=== PATIENT | female | born 1995 | race Caucasian/White ===

== ENCOUNTER 2018-04-14 10:43 | Emergency (ER) | payer OTHER ==
[2018-04-14 10:57] VITALS: RESP 18
[2018-04-14] MEDS ORDERED: Iohexol 240 (50 ml) PO STA (11:25)
[2018-04-14] MEDS ORDERED: Sodium Chloride 0.9% 1,000 ML IV STA (11:25)
--- NOTE | 2018-04-14 11:37 | C.PDOC ---
History Of Present Illness 23 year old female presents to ED for evaluation of LLQ abdominal pain associated with diarrhea for the last 2 days. Pt reports having similar symptoms a year ago which resolved spontaneously, noted she was not evaluated at that time. Notes symptoms are worse this time which prompted her to visit ED. Notes pain occasionally radiates to left flak area. Otherwise, denies dysuria, hematuria, frequency, nausea, vomiting, blood in stool, fever, or chills. Time Seen by Provider: 04/14/18 10:59 Chief Complaint (Nursing): Abdominal Pain History Per: Patient History/Exam Limitations: no limitations Onset/Duration Of Symptoms: Days (2) Current Symptoms Are (Timing): Worse Location Of Pain/Discomfort: LLQ Radiation Of Pain To:: Flank Quality Of Discomfort: "Pain" Associated Symptoms: Diarrhea. denies: Loss Of Appetite, Chest Pain, Constipation, Urinary Symptoms Exacerbating Factors: None Alleviating Factors: None Recent travel outside of the [place]: No Additional History Per: Patient Past Medical History Reviewed: Historical Data, Nursing Documentation, Vital Signs Vital Signs: Last Vital Signs Temp 98 F 04/14/18 17:16 Pulse 69 04/14/18 17:16 Resp 18 04/14/18 17:16 BP 126/89 04/14/18 17:16 Pulse Ox 98 04/14/18 17:20 Family History: States: Unknown Family Hx - Social History Hx Alcohol Use: No Hx Substance Use: No Review Of Systems Except As Marked, All Systems Reviewed And Found Negative. Constitutional: Negative for: Fever, Chills Gastrointestinal: Positive for: Abdominal Pain, Diarrhea. Negative for: Nausea , Vomiting, Constipation, Melena, Hematochezia Genitourinary: Negative for: Dysuria, Frequency, Hematuria Musculoskeletal: Positive for: Back Pain Neurological: Negative for: Weakness, Numbness, Headache Physical Exam - Physical Exam Appears: Non-toxic, No Acute Distress Skin: Normal Color, Warm, Dry Head: Atraumatic, Normacephalic Eye(s): bilateral: Normal Inspection Oral Mucosa: Moist Neck: Normal ROM, Supple Chest: Symmetrical, No Tenderness Cardiovascular: Rhythm Regular Respiratory: Normal Breath Sounds, No Rales, No Rhonchi, No Wheezing Gastrointestinal/Abdominal: Bowel Sounds, Soft, Tenderness (LLQ), No Distention , No Guarding, No Rebound Back: No CVA Tenderness Extremity: Normal ROM Neurological/Psych: Oriented x3, Normal Speech ED Course And Treatment - Laboratory Results Result Diagrams: 04/14/18 11:37 04/14/18 11:37 O2 Sat by Pulse Oximetry: 98 (RA) Pulse Ox Interpretation: Normal - CT Scan/US Abd & Pelvis CT Other Rad Studies (CT/US): Read By Radiologist, Radiology Report Reviewed CT/US Interpretation: FINDINGS: LOWER THORAX: No visible consolidation, pleural effusion, or pneumothorax. LIVER: Unremarkable. GALLBLADDER AND BILE DUCTS: Unremarkable. PANCREAS: Unremarkable. SPLEEN: Unremarkable. ADRENALS: Unremarkable. KIDNEYS AND URETERS: The kidneys enhance symmetrically. No hydronephrosis or obstructing renal calculus. BLADDER: The urinary bladder appears unremarkable. REPRODUCTIVE: Uterus is present. APPENDIX: The appendix appears within normal limits of caliber. No secondary signs of acute appendicitis. BOWEL: The stomach is nondistended. The bowel loops appear within normal limits of caliber without evidence of intestinal obstruction. PERITONEUM: Small pelvic free fluid, likely physiologic. No definite free air. LYMPH NODES: No bulky lymphadenopathy identified. VASCULATURE: No aortic aneurysm. BONES: No acute osseous abnormality is detected. OTHER FINDINGS: None. IMPRESSION: No acute findings identified. See above. Medical Decision Making Medical Decision Making: Plan: Blood work Urinalysis Abd & Pelvis CT Toradol Zofran IV fluids Progress note: On re-eval, pt is resting comfortably, abdomen remains soft. Pt reports improvement of abdominal pain. Patient is being discharged home with Rx and is instructed to follow up in clinic and with inspector electromechanical within next 2-3 days. Disposition - Disposition Referrals: [facility] at [facility] [Outside] Disposition: HOSPITALIZED Disposition Time: 16:42 Condition: STABLE Additional Instructions: Follow up in Clinic and with Leather Carver within next 2-3 days. Return to ED if feel worse. Prescriptions: Dicyclomine [Bentyl] 20 mg PO TID #30 tab Instructions: Viral Gastroenteritis, Adult (DC) Forms: [facility] (Tajik) - Clinical Impression Clinical Impression: Abdominal pain, Diarrhea - PA / CUTTER GRINDER / Resident Statement MD/DO has reviewed & agrees with the documentation as recorded. - Scribe Statement The provider has reviewed the documentation as recorded by the Abbieibe Mamadou Parsons All medical record entries made by the Scribe were at my direction and personally dictated by me. I have reviewed the chart and agree that the record accurately reflects my personal performance of the history, physical exam, medical decision making, and the department course for this patient. I have also personally directed, reviewed, and agree with the discharge instructions and disposition.
[2018-04-14] MEDS ORDERED: Sodium Chloride 0.9% 1,000 ML ONE (11:43)
[2018-04-14] MEDS ORDERED: Iohexol 240 (50 ml) ONE (11:43)
[2018-04-14 11:46] LABS: BASO % 0.8 % (0.0-2.0); EOS # 0.1 K/uL (0.0-0.7); EOS % 1.8 % (0.0-4.0); HEMOGLOBIN 13.8 g/dL (11.0-16.0); LYMPH # 1.3 K/uL (1.0-4.3); LYMPH % 23.7 % (20.0-40.0); MEAN CELL VOLUME 87.4 fL (81.0-99.0); MEAN CORPUSCULAR HEMOGLOBIN 30.3 pg (27.0-31.0); MEAN CORPUSCULAR HGB CONC 34.7 g/dL (33.0-37.0); MEAN PLATELET VOLUME 8.5 fL (7.2-11.7); MONO # 0.7 K/uL (0.0-0.8); NEUT # 3.5 K/uL (1.8-7.0); NEUT % 61.7 % (50.0-75.0); RBC 4.57 Mil/uL (3.80-5.20); RED CELL DISTRIBUTION WIDTH 13.1 % (11.5-14.5); WHITE BLOOD COUNT 5.6 K/uL (4.8-10.8)
[2018-04-14 11:50] LABS: HCG,QUALITATIVE URINE NEGATIVE (NEGATIVE)
[2018-04-14 11:55] LABS: SQUAMOUS EPITHIAL 19 /hpf (0-5); URINE BACTERIA RARE (<OCC); URINE BILIRUBIN NEGATIVE (NEGATIVE); URINE BLOOD 2+ (NEGATIVE); URINE CLARITY Hazy (Clear); URINE COLOR Yellow (YELLOW); URINE GLUCOSE (UA) NORMAL (Normal); URINE LEUKOCYTE ESTERASE 2+ Leu/uL (Negative); URINE PROTEIN NEGATIVE (NEGATIVE); URINE UROBILINOGEN NORMAL mg/dL (0.2-1.0)
[2018-04-14 12:09] LABS: ALB/GLOB RATIO 1.3 (1.0-2.1); ALBUMIN 4.7 g/dL (3.5-5.0); ALT/SGPT 25 U/L (9-52); AST/SGOT 23 U/L (14-36); BLOOD UREA NITROGEN 6 mg/dL (7-17); CALCIUM 9.7 mg/dl (8.6-10.4); GFR NON-AFRICAN AMERICAN > 60; LIPASE 44 U/L (23-300)
[2018-04-14] MEDS ORDERED: Iodixanol 320 mg/ml 150 ml Bottle IV ONE (14:20)
--- NOTE | 2018-04-14 14:57 | CT ---
PROCEDURE: CT Abdomen and Pelvis with oral and IV contrast. HISTORY: LLQ abd pain COMPARISON: None available. TECHNIQUE: Contiguous axial images of the abdomen and pelvis. Oral and IV contrast was administered. Coronal and Sagittal reformats generated and reviewed. Contrast dose: 100 mL Visipaque IV Radiation dose: Total exam DLP = 892.38 mGy-cm. This CT exam was performed using one or more of the following dose reduction techniques: Automated exposure control, adjustment of the mA and/or kV according to patient size, and/or use of iterative reconstruction technique. FINDINGS: LOWER THORAX: No visible consolidation, pleural effusion, or pneumothorax. LIVER: Unremarkable. GALLBLADDER AND BILE DUCTS: Unremarkable. PANCREAS: Unremarkable. SPLEEN: Unremarkable. ADRENALS: Unremarkable. KIDNEYS AND URETERS: The kidneys enhance symmetrically. No hydronephrosis or obstructing renal calculus. BLADDER: The urinary bladder appears unremarkable. REPRODUCTIVE: Uterus is present. APPENDIX: The appendix appears within normal limits of caliber. No secondary signs of acute appendicitis. BOWEL: The stomach is nondistended. The bowel loops appear within normal limits of caliber without evidence of intestinal obstruction. PERITONEUM: Small pelvic free fluid, likely physiologic. No definite free air. LYMPH NODES: No bulky lymphadenopathy identified. VASCULATURE: No aortic aneurysm. BONES: No acute osseous abnormality is detected. OTHER FINDINGS: None. IMPRESSION: No acute findings identified. See above.
[2018-04-14 16:44] VITALS: O2SAT 98
[2018-04-14 17:17] VITALS: BP 126/89; PULSE 69; TEMP 98
== END 2018-04-14 17:17 | disposition home or self-care (01) ==
LOC: C.ER 10:43
DX: R10.32 Left lower quadrant pain (principal); R19.7 Diarrhea, unspecified
CPT/HCPCS: 74177; 80053; 81001; 83690; 84703; 85025; 96374; 96375; 99285; J1885; J2405; J7030; Q9966; Q9967

== ENCOUNTER 2018-06-23 17:03 | Emergency (ER) | payer SELFPAY ==
[2018-06-23 17:14] VITALS: BMI 33.6
[2018-06-23 17:16] VITALS: BP 111/74; PULSE 84; RESP 20; TEMP 98.5; O2SAT 100
--- NOTE | 2018-06-23 17:51 | C.PDOC ---
History Of Present Illness 23 year old female presents to the emergency department with complaints of an itchy rash to the face, forehead, and upper neck since yesterday. Patient denies eating any new foods or using any new topical substances. Patient states that she tried taking PO Benadryl yesterday with no relief of symptoms. She denies chest pain, palpitations, or difficulty breathing. Time Seen by Provider: 06/23/18 17:35 Chief Complaint (Nursing): Abnormal Skin Integrity History Per: Patient History/Exam Limitations: no limitations Onset/Duration Of Symptoms: Days (1) Current Symptoms Are (Timing): Still Present Location Of Injury: Anterior: Face, Head (forehead), Neck Quality Of Symptoms: Itching Past Medical History Reviewed: Historical Data, Nursing Documentation, Vital Signs Vital Signs: Last Vital Signs Temp 98.5 F 06/23/18 17:14 Pulse 84 06/23/18 17:14 Resp 20 06/23/18 17:14 BP 111/74 06/23/18 17:14 Pulse Ox 100 06/23/18 17:14 - Medical History PMH: No Chronic Diseases Surgical History: No Surg Hx Family History: States: No Known Family Hx - Social History Hx Alcohol Use: No Hx Substance Use: No - Immunization History Hx Tetanus Toxoid Vaccination: No Hx Influenza Vaccination: No Hx Pneumococcal Vaccination: No Review Of Systems ENT: Negative for: Mouth Swelling, Throat Pain, Throat Swelling Cardiovascular: Negative for: Chest Pain, Palpitations Respiratory: Negative for: Shortness of Breath Skin: Positive for: Rash Physical Exam - Physical Exam Appears: Well, Non-toxic, No Acute Distress Skin: Warm, Dry, Rash (sandpaper-like rash to the cheeks bilaterally and upper forehead) Head: Atraumatic, Normacephalic Eye(s): bilateral: Normal Inspection Oral Mucosa: Moist Tongue: Normal Appearing, No Swelling Lips: Normal Appearing, No Swelling Throat: No Erythema, No Exudate Neck: Normal, Supple Respiratory: Normal Breath Sounds, No Rales, No Rhonchi, No Wheezing Neurological/Psych: Oriented x3, Normal Speech, Normal Cognition ED Course And Treatment O2 Sat by Pulse Oximetry: 100 (RA) Pulse Ox Interpretation: Normal Medical Decision Making Medical Decision Making: pt with itchy rash to face. no sign of airway compromise, d/c home with benadryl and prednosine. Disposition Counseled Patient/Family Regarding: Diagnosis, Need For Followup, Rx Given - Disposition Referrals: [facility] at [facility] [Outside] Disposition: HOME/ ROUTINE Disposition Time: 18:39 Condition: GOOD Additional Instructions: Avoid any new substances on skin. Use only hypo allergenic soaps or moisturizers. Take prednisone as prescribed and continue taking bendryl 25 mg by mouth every 6 hours. If rash worsens, spreads to mouth, lips or tongue, causes any difficulty swallowing or breathing. then return to the ER, otherwise follow up in medical clinic next week. Prescriptions: predniSONE [predniSONE Tab] 2 tab PO DAILY #8 tab Instructions: Skin Rash (DC) Forms: [employer] Connect (Croatian), General Discharge Instructions - Clinical Impression Clinical Impression: Rash - PA / GLASS OR MIRROR INSPECTOR / Resident Statement MD/DO has reviewed & agrees with the documentation as recorded. - Scribe Statement The provider has reviewed the documentation as recorded by the Scribe (Nii Urrutia) All medical record entries made by the Scribe were at my direction and personally dictated by me. I have reviewed the chart and agree that the record accurately reflects my personal performance of the history, physical exam, medical decision making, and the department course for this patient. I have also personally directed, reviewed, and agree with the discharge instructions and disposition.
== END 2018-06-23 18:57 | disposition home or self-care (01) ==
LOC: C.ER 17:03
DX: R21 Rash and other nonspecific skin eruption (principal)

== ENCOUNTER 2018-11-25 14:38 | Observation (INO) | payer SELFPAY ==
[2018-11-25 14:38] VITALS: BMI 33.6
[2018-11-25 16:02] LABS: BASO # 0.1 K/uL (0.0-0.2); EOS # 0.3 K/uL (0.0-0.7); HEMOGLOBIN 14.2 g/dL (11.0-16.0); LYMPH # 3.1 K/uL (1.0-4.3); MEAN CELL VOLUME 89.6 fL (81.0-99.0); MEAN CORPUSCULAR HEMOGLOBIN 30.7 pg (27.0-31.0); MEAN CORPUSCULAR HGB CONC 34.2 g/dL (33.0-37.0); MEAN PLATELET VOLUME 8.4 fL (7.2-11.7); MONO # 0.5 K/uL (0.0-0.8); MONO % 5.3 % (0.0-10.0); NEUT # 5.5 K/uL (1.8-7.0); NEUT % 57.7 % (50.0-75.0); RBC 4.64 Mil/uL (3.80-5.20); RED CELL DISTRIBUTION WIDTH 14.3 % (11.5-14.5); WHITE BLOOD COUNT 9.5 K/uL (4.8-10.8)
[2018-11-25 16:14] LABS: ALB/GLOB RATIO 1.1 (1.0-2.1); ALBUMIN 4.9 g/dL (3.5-5.0); ALT/SGPT 36 U/L (9-52); AST/SGOT 57 U/L (14-36); BLOOD UREA NITROGEN 17 mg/dL (7-17); CALCIUM 9.8 mg/dl (8.6-10.4); GFR NON-AFRICAN AMERICAN > 60
[2018-11-25 16:46] LABS: T3 0.725 nmol/L (1.49-2.60)
--- NOTE | 2018-11-25 17:08 | CP.PCM.HP ---
<Elli Camargo - Last Filed: 11/25/18 18:32> History of Present Illness - History of Present Illness History of Present Illness: H&P: 23 year old female with past medical history of hypothyroidism presents for fatigue and diffuse body aches ongoing for past 2 weeks. She also complains of 20 lb weight gain over last month. She states that in April, she was prescribed synthroid in [facility] for 3 months. She completed the 3 month prescription and never followed up. She stopped the Synthroid about 1.5 months ago. In ED, pt noted to have TSH of 86.30 and T4 of 0.1. Pt complaining of prof use hair loss, fatigue, weakness, weight gain, shortness of breath. Denies having any changes in bowel movements, chest pain, depression, anxiety, vision changes, headaches. PMHx: hypothyroid Sx: none Social:denies. Moved from [facility] 6 months ago PMD: none FHx: hypothyroid, HTN Meds: currently none Present on Admission - Present on Admission Any Indicators Present on Admission: No Review of Systems - Constitutional Constitutional: Lethargy, Weight Gain. absent: Chills, Fever, Headache, Weight Loss - EENT Eyes: absent: Blurred Vision, Change in Vision, Exophthalmos Nose/Mouth/Throat: absent: Nasal Congestion, Sore Throat - Cardiovascular Cardiovascular: absent: Chest Pain, Dyspnea, Dyspnea on Exertion, Edema, Lightheadedness, Palpitations, Pedal Edema - Respiratory Respiratory: absent: Cough, Dyspnea, Wheezing, Chest Congestion - Gastrointestinal Gastrointestinal: absent: Abdominal Pain, Constipation, Diarrhea, Heartburn, Nausea, Vomiting - Genitourinary Genitourinary: absent: Change in Urinary Stream, Difficulty Urinating, Urinary Incontinence, Urinary Frequency - Menstruation Menstruation: Normal Menses. absent: Amenorrhea - Musculoskeletal Musculoskeletal: absent: Back Pain, Numbness, Stiffness, Tingling - Integumentary Integumentary: absent: Lesions, Rash - Neurological Neurological: absent: Dizziness, Numbness, Tingling, Weakness - Psychiatric Psychiatric: absent: Anxiety, Confusion, Depression - Endocrine Endocrine: Fatigue Past Patient History - Past Social History Smoking Status: Never Smoked Chewing Tobacco Use: No Cigar Use: No Alcohol: None Drugs: Denies - ENDOCRINE/METABOLIC Hx Endocrine Disorders: Yes Hx Hypothyroidism: Yes - PSYCHIATRIC Hx Substance Use: No - SURGICAL HISTORY Hx Surgeries: No - ANESTHESIA Hx Anesthesia: No Meds Allergies/Adverse Reactions: Allergies Allergy/AdvReac Type Severity Reaction Status Date / Time No Known Allergies Allergy Verified 11/25/18 14:54 Physical Exam - Constitutional Appears: Non-toxic, No Acute Distress - Head Exam Head Exam: ATRAUMATIC, NORMOCEPHALIC - Eye Exam Eye Exam: absent: Periorbital swelling, Periorbital tenderness - ENT Exam ENT Exam: Mucous Membranes Dry - Respiratory Exam Respiratory Exam: Clear to Auscultation Bilateral. absent: Accessory Muscle Use, Rales, Rhonchi, Wheezes, Respiratory Distress - Cardiovascular Exam Cardiovascular Exam: REGULAR RHYTHM, +S1, +S2. absent: Diastolic murmur, Systolic Murmur - GI/Abdominal Exam GI & Abdominal Exam: Normal Bowel Sounds, Soft. absent: Distended, Firm, Guarding, Rigid, Tenderness - Extremities Exam Extremities exam: Negative for: pedal edema, tenderness - Neurological Exam Neurological exam: Alert, Oriented x3 - Psychiatric Exam Psychiatric exam: Normal Affect, Normal Mood - Skin Skin Exam: Dry, Intact, Normal Color, Warm Results - Vital Signs Recent Vital Signs: Last Vital Signs Temp 97.6 F 11/25/18 14:50 Pulse 62 11/25/18 14:50 Resp 18 11/25/18 14:50 BP 108/75 11/25/18 14:50 Pulse Ox 99 11/25/18 14:50 - Labs Result Diagrams: 11/25/18 15:57 11/25/18 15:57 Labs: Laboratory Results - last 24 hr 11/25/18 11/25/18 11/25/18 15:57 15:57 15:57 WBC 9.5 D RBC 4.64 Hgb 14.2 Hct 41.5 MCV 89.6 D MCH 30.7 MCHC 34.2 RDW 14.3 Plt Count 231 MPV 8.4 Neut % (Auto) 57.7 Lymph % (Auto) 33.0 [place] % (Auto) 5.3 Eos % (Auto) 3.0 Baso % (Auto) 1.0 Neut # (Auto) 5.5 Lymph # (Auto) 3.1 [place] # (Auto) 0.5 Eos # (Auto) 0.3 Baso # (Auto) 0.1 Sodium 136 Potassium 3.8 Chloride 101 Carbon Dioxide 25 Anion Gap 14 BUN 17 Creatinine 0.7 Est GFR ( Amer) > 60 Est GFR (Non-Af Amer) > 60 Random Glucose 85 Calcium 9.8 Total Bilirubin 0.6 AST 57 H D ALT 36 Alkaline Phosphatase 90 Total Protein 9.2 H Albumin 4.9 Globulin 4.3 H Albumin/Globulin Ratio 1.1 Free T4 0.10 L Total T3 0.725 L TSH 3rd Generation 86.30 H Assessment & Plan - Assessment and Plan (Free Text) Assessment: 23 y/o female with pmhx of hypothyroid is admitted for symptomatic hypothyroidism. TSH on admission is 86.30, T4 is 0.10, T3 is 0.725. EKG on admission showed bradycardia at 56 bpm. Hypothyroidism - Will check thyroid peroxidase and antithyroglobulin - Pt started on synthroid IV 100 mg - Endo, Dr. Juarez consulted - Will check hgb A1c and lipid panel Prophylaxis - Lovenox qd - GI ppx not indicated - HHD Case discussed with attending, Dr. Solano - Date & Time Date: 11/25/18 Time: 17:45 <Jeannette Solano - Last Filed: 11/26/18 10:43> Results - Vital Signs Recent Vital Signs: Last Vital Signs Temp 98.2 F 11/25/18 23:00 Pulse 61 11/25/18 23:00 Resp 20 11/25/18 23:00 BP 113/69 11/25/18 23:00 Pulse Ox 99 11/26/18 07:15 - Labs Result Diagrams: 11/26/18 08:40 11/26/18 08:40 Labs: Laboratory Results - last 24 hr 11/25/18 11/25/18 11/25/18 15:57 15:57 15:57 WBC 9.5 D RBC 4.64 Hgb 14.2 Hct 41.5 MCV 89.6 D MCH 30.7 MCHC 34.2 RDW 14.3 Plt Count 231 MPV 8.4 Neut % (Auto) 57.7 Lymph % (Auto) 33.0 [place] % (Auto) 5.3 Eos % (Auto) 3.0 Baso % (Auto) 1.0 Neut # (Auto) 5.5 Lymph # (Auto) 3.1 [place] # (Auto) 0.5 Eos # (Auto) 0.3 Baso # (Auto) 0.1 Sodium 136 Potassium 3.8 Chloride 101 Carbon Dioxide 25 Anion Gap 14 BUN 17 Creatinine 0.7 Est GFR ( Amer) > 60 Est GFR (Non-Af Amer) > 60 Random Glucose 85 Hemoglobin A1c Calcium 9.8 Total Bilirubin 0.6 AST 57 H D ALT 36 Alkaline Phosphatase 90 Total Protein 9.2 H Albumin 4.9 Globulin 4.3 H Albumin/Globulin Ratio 1.1 Triglycerides Cholesterol LDL Cholesterol Direct HDL Cholesterol Free T4 Thyroxine (T4) Total T3 0.725 L TSH 3rd Generation 86.30 H Urine Color Yellow Urine Clarity Hazy Urine pH 5.0 Ur Specific [place] 1.016 Urine Protein Negative Urine Glucose (UA) Normal Urine Ketones Negative Urine Blood 1+ H Urine Nitrate Negative Urine Bilirubin Negative Urine Urobilinogen Normal Ur Leukocyte Esterase 3+ H Urine WBC (Auto) 31 H Urine RBC (Auto) 1 Ur Squamous Epith Cells 6 H Urine Bacteria Few H 11/25/18 11/26/18 11/26/18 15:57 08:40 08:40 WBC 7.8 RBC 4.29 Hgb 13.2 Hct 38.5 MCV 89.9 MCH 30.9 MCHC 34.3 RDW 14.3 Plt Count 234 MPV 8.7 Neut % (Auto) 58.3 Lymph % (Auto) 30.4 [place] % (Auto) 7.2 Eos % (Auto) 2.9 Baso % (Auto) 1.2 Neut # (Auto) 4.6 Lymph # (Auto) 2.4 [place] # (Auto) 0.6 Eos # (Auto) 0.2 Baso # (Auto) 0.1 Sodium 137 Potassium 4.1 Chloride 102 Carbon Dioxide 23 Anion Gap 17 BUN 13 Creatinine 0.8 Est GFR ( Amer) > 60 Est GFR (Non-Af Amer) > 60 Random Glucose 91 Hemoglobin A1c Calcium 9.3 Total Bilirubin 0.3 AST 47 H ALT 33 Alkaline Phosphatase 86 Total Protein 7.8 Albumin 4.3 Globulin 3.5 Albumin/Globulin Ratio 1.2 Triglycerides 320 H Cholesterol 307 H LDL Cholesterol Direct 214 H HDL Cholesterol 37 Free T4 0.10 L Thyroxine (T4) 2.19 L Total T3 TSH 3rd Generation 84.20 H Urine Color Urine Clarity Urine pH Ur Specific [place] Urine Protein Urine Glucose (UA) Urine Ketones Urine Blood Urine Nitrate Urine Bilirubin Urine Urobilinogen Ur Leukocyte Esterase Urine WBC (Auto) Urine RBC (Auto) Ur Squamous Epith Cells Urine Bacteria 11/26/18 11/26/18 08:40 08:40 WBC RBC Hgb Hct MCV MCH MCHC RDW Plt Count MPV Neut % (Auto) Lymph % (Auto) [place] % (Auto) Eos % (Auto) Baso % (Auto) Neut # (Auto) Lymph # (Auto) [place] # (Auto) Eos # (Auto) Baso # (Auto) Sodium Potassium Chloride Carbon Dioxide Anion Gap BUN Creatinine Est GFR ( Amer) Est GFR (Non-Af Amer) Random Glucose Hemoglobin A1c 5.3 Calcium Total Bilirubin AST ALT Alkaline Phosphatase Total Protein Albumin Globulin Albumin/Globulin Ratio Triglycerides Cholesterol LDL Cholesterol Direct HDL Cholesterol Free T4 0.23 L Thyroxine (T4) Total T3 TSH 3rd Generation Urine Color Urine Clarity Urine pH Ur Specific [place] Urine Protein Urine Glucose (UA) Urine Ketones Urine Blood Urine Nitrate Urine Bilirubin Urine Urobilinogen Ur Leukocyte Esterase Urine WBC (Auto) Urine RBC (Auto) Ur Squamous Epith Cells Urine Bacteria Attending/Attestation - Attestation I have personally seen and examined this patient.: Yes I have fully participated in the care of the patient.: Yes I have reviewed all pertinent clinical information: Yes Notes (Text): Seen and examined patient has severe symptomatic hypothyroidism start on IV Levothyroxin,follow up with business proposal rep recommendation spoke to pt. Told to not to stop her meds,follow or medical clinic to adjust the dose and get refills
[2018-11-25 17:26] LABS: SQUAMOUS EPITHIAL 6 /hpf (0-5); URINE BACTERIA FEW (<OCC); URINE BILIRUBIN NEGATIVE (NEGATIVE); URINE BLOOD 1+ (NEGATIVE); URINE CLARITY Hazy (Clear); URINE COLOR Yellow (YELLOW); URINE GLUCOSE (UA) NORMAL (Normal); URINE LEUKOCYTE ESTERASE 3+ Leu/uL (Negative); URINE PROTEIN NEGATIVE (NEGATIVE); URINE UROBILINOGEN NORMAL mg/dL (0.2-1.0)
[2018-11-25] MEDS ORDERED: Levothyroxine 100 mcg (0.1 mg) Inj IVP SCH (17:45)
--- NOTE | 2018-11-25 18:49 | C.PDOC ---
History Of Present Illness 23 y.o female with PMHx of hypothyroidism presents for evaluation of generalized fatigue and weakness increasing x2 months. Pt admits to 20lb weight gain. She notes no changes in appetite over the last 2 months. Pt admits she has not taken her prescribed medication in the past 2 months b/c she rainout. Denies fever, chills, cough, or any other associated symptoms. Chief Complaint (Nursing): Medical Clearance History Per: Patient History/Exam Limitations: no limitations Onset/Duration Of Symptoms: Days Current Symptoms Are (Timing): Still Present Recent travel outside of the [place]: No Past Medical History Reviewed: Historical Data, Nursing Documentation, Vital Signs Vital Signs: Last Vital Signs Temp 98.6 F 11/25/18 17:53 Pulse 64 11/25/18 17:53 Resp 18 11/25/18 17:53 BP 112/74 11/25/18 17:53 Pulse Ox 99 11/25/18 17:53 - Medical History PMH: Hypothyroidism Family History: States: Unknown Family Hx - Social History Hx Alcohol Use: No Hx Substance Use: No - Immunization History Hx Tetanus Toxoid Vaccination: No Hx Influenza Vaccination: No Hx Pneumococcal Vaccination: No Review Of Systems Except As Marked, All Systems Reviewed And Found Negative. Constitutional: Positive for: Weakness (generalized. ), Weight loss, Other ((+) generalized fatigue. (+) recent 20lb weight gain. (-) changes in appetite. ). Negative for: Fever, Chills Respiratory: Negative for: Cough Physical Exam - Physical Exam Appears: Non-toxic, No Acute Distress Skin: Warm, Dry Head: Atraumatic, Normacephalic Eye(s): bilateral: Normal Inspection Oral Mucosa: Moist Neck: Normal ROM, Supple Chest: Symmetrical, No Deformity Cardiovascular: Rhythm Regular, No Murmur Respiratory: Normal Breath Sounds, No Rales, No Rhonchi Gastrointestinal/Abdominal: Normal Exam, Soft, No Tenderness Extremity: Bilateral: Atraumatic, Normal Color And Temperature, Normal ROM Neurological/Psych: Oriented x3, Normal Speech, Normal Cognition ED Course And Treatment - Laboratory Results Result Diagrams: 11/25/18 15:57 11/25/18 15:57 Lab Results: Total Bilirubin 0.6 mg/dL (0.2-1.3) 11/25/18 15:57 AST 57 U/L (14-36) H D 11/25/18 15:57 ALT 36 U/L (9-52) 11/25/18 15:57 Alkaline Phosphatase 90 U/L (38-126) 11/25/18 15:57 Total Protein 9.2 g/dL (6.3-8.3) H 11/25/18 15:57 Albumin 4.9 g/dL (3.5-5.0) 11/25/18 15:57 Globulin 4.3 gm/dL (2.2-3.9) H 11/25/18 15:57 Albumin/Globulin Ratio 1.1 (1.0-2.1) 11/25/18 15:57 Urine Color Yellow (YELLOW) 11/25/18 15:57 Urine Clarity Hazy (Clear) 11/25/18 15:57 Urine pH 5.0 (5.0-8.0) 11/25/18 15:57 Ur Specific [place] 1.016 (1.003-1.030) 11/25/18 15:57 Urine Protein Negative mg/dL (NEGATIVE) 11/25/18 15:57 Urine Glucose (UA) Normal mg/dL (Normal) 11/25/18 15:57 Urine Ketones Negative mg/dL (NEGATIVE) 11/25/18 15:57 Urine Blood 1+ (NEGATIVE) H 11/25/18 15:57 Urine Nitrate Negative (NEGATIVE) 11/25/18 15:57 Urine Bilirubin Negative (NEGATIVE) 11/25/18 15:57 Urine Urobilinogen Normal mg/dL (0.2-1.0) 11/25/18 15:57 Ur Leukocyte Esterase 3+ [place]/uL (Negative) H 11/25/18 15:57 Urine WBC (Auto) 31 /hpf (0-5) H 11/25/18 15:57 Urine RBC (Auto) 1 /hpf (0-3) 11/25/18 15:57 Ur Squamous Epith Cells 6 /hpf (0-5) H 11/25/18 15:57 Urine Bacteria Few (<OCC) H 11/25/18 15:57 ECG: Interpreted By Me, Viewed By Me ECG Rhythm: Sinus Bradycardia Rate From EC O2 Sat by Pulse Oximetry: 99 (RA) Pulse Ox Interpretation: Normal Medical Decision Making Medical Decision Making: Initial plan: -EKG -Blood sent. -Lovenox -Synthroid -Urinalysis -HCG Urine Progress/Update: Spoke with Dr. Fonseca, pt will be admitted under her service in telemetry. Dr. Fonseca to page Dr. Juarez for IV synthroid. Unable to reach Dr. Juarez from ED. Disposition - Disposition Disposition: HOSPITALIZED Disposition Time: 16:55 Condition: FAIR - Clinical Impression Clinical Impression: Hypothyroid, Weakness - Scribe Statement The provider has reviewed the documentation as recorded by the Scribe (Mary Odell) Provider Attestation: All medical record entries made by the Scribe were at my direction and personally dictated by me. I have reviewed the chart and agree that the record accurately reflects my personal performance of the history, physical exam, medical decision making, and the department course for this patient. I have also personally directed, reviewed, and agree with the discharge instructions and disposition.
[2018-11-26 01:36] VITALS: RESP 20
[2018-11-26] MEDS ORDERED: Levothyroxine 100 MCG TAB PO SCH (06:30)
--- NOTE | 2018-11-26 08:45 | CON ---
DATE: 11/25/2018 LOCATION: Room 569. SUBJECTIVE: This is a 23-year-old female with long history of hypothyroidism, currently off of medications for over a month and presenting here with constitutional symptoms and progressive weight gain and is now being referred for endocrine evaluation and management. PAST MEDICAL HISTORY: As mentioned above, history of hypothyroidism. Previously on Synthroid medications. The exact dose is not known at this time and apparently was lost to medical followup in [facility] as noted. She has had no recent medical checkups or lab testing while in this country until the present time. FAMILY HISTORY: No known thyroid endocrinopathy. SOCIAL HISTORY: The patient has a supportive family. No known substance use. REVIEW OF SYSTEMS: Admits to easy fatigability and tiredness with suboptimal energy level. Also admits to gradual and progressive weight gain of over 20 pounds with generalized body weakness and hypersomnolence. Also admits to episodic dizziness and lightheadedness. No chest pains or palpitations. Her oral intake has been variable with dyspepsia and habitual constipation. PHYSICAL EXAMINATION: GENERAL: This is an obese female, in no apparent distress. VITAL SIGNS: Blood pressure 130/80, pulse 70 beats per minute regular, temperature 98, respirations 20, height is 5 feet 4 inches, weight 220 pounds. HEENT: Head: Normocephalic. Eyes: Anicteric with pink conjunctivae. Funduscopy not possible at this time. Ears, nose and throat otherwise normal. NECK: Supple. Thyroid gland is firm and nontender with no overt thyroid nodules. HEART: Adynamic precordium. S1 and S2 is rapid and regular. LUNGS: Clear to auscultation. ABDOMEN: Flat, soft with positive bowel sounds. EXTREMITIES: No peripheral edema. Pulses are bilaterally. LABORATORY DATA: Chemistries showed a BUN of 70, sodium 136, potassium 3.8, chloride is 101, CO2 of 25, glucose 85 and creatinine 0.7. Her TSH is 6.3 with a free T4 of 0.10. ASSESSMENT: This is a 23-year-old female with moderate hypothyroidism, noted both historically, clinically, and biochemically related to drug omission and most likely has autoimmune thyroiditis as noted thereof. PLAN AND MANAGEMENT: We concur with IV levothyroxine given as 100 mcg daily as ordered. Since she was actually admitted to the hospital, this could very well have been done on the outpatient as the overt thyroid manifestations of hypothyroidism are literally treatable on the outpatient as this is a slow insidious yet progressive development of moderate hypothyroidism. The patient was admitted recently only hemodynamically unstable with marked bradycardia and supervening hypotension or hyponatremia. Anyhow, to continue the plan of management, we will continue the levothyroxine given as 100 mcg IV push once daily but should be ready for discharge after 24 hours on oral levothyroxine replacement therapy. We will follow the patient. Stephenie Juarez MD
[2018-11-26 08:53] LABS: BASO # 0.1 K/uL (0.0-0.2); BASO % 1.2 % (0.0-2.0); EOS # 0.2 K/uL (0.0-0.7); EOS % 2.9 % (0.0-4.0); HEMOGLOBIN 13.2 g/dL (11.0-16.0); LYMPH # 2.4 K/uL (1.0-4.3); LYMPH % 30.4 % (20.0-40.0); MEAN CELL VOLUME 89.9 fL (81.0-99.0); MEAN CORPUSCULAR HEMOGLOBIN 30.9 pg (27.0-31.0); MEAN CORPUSCULAR HGB CONC 34.3 g/dL (33.0-37.0); MEAN PLATELET VOLUME 8.7 fL (7.2-11.7); MONO # 0.6 K/uL (0.0-0.8); MONO % 7.2 % (0.0-10.0); NEUT # 4.6 K/uL (1.8-7.0); NEUT % 58.3 % (50.0-75.0); RBC 4.29 Mil/uL (3.80-5.20); RED CELL DISTRIBUTION WIDTH 14.3 % (11.5-14.5); WHITE BLOOD COUNT 7.8 K/uL (4.8-10.8)
[2018-11-26 09:15] LABS: ALB/GLOB RATIO 1.2 (1.0-2.1); ALBUMIN 4.3 g/dL (3.5-5.0); ALT/SGPT 33 U/L (9-52); AST/SGOT 47 U/L (14-36); BLOOD UREA NITROGEN 13 mg/dL (7-17); CALCIUM 9.3 mg/dl (8.6-10.4); GFR NON-AFRICAN AMERICAN > 60; HDL CHOLESTEROL 37 mg/dL (30-70)
[2018-11-26 09:22] LABS: LDL CHOLESTEROL 214 mg/dL (0-129)
[2018-11-26] MEDS ORDERED: Enoxaparin 40 mg Syringe SC SCH (10:00)
--- NOTE | 2018-11-26 11:25 | CP.PCM.DIS ---
Provider - Provider Date of Admission: 11/25/18 17:03 Attending physician: Jeannette Solano MD Consults: 11/25/18 17:47 Physician Consult Stat Comment: Consulting Provider: Stephenie Juarez Consulting Physician: Stephenie Juarez Reason for Consult: symptomatic new onset hypothyroid Time Spent in preparation of Discharge (in minutes): 45 Diagnosis - Discharge Diagnosis (1) Hypothyroid Status: Acute (2) Hyperlipidemia Status: Acute Hospital Course - Lab Results Lab Results: Most Recent Lab Values WBC 7.8 K/uL (4.8-10.8) 11/26/18 08:40 RBC 4.29 Mil/uL (3.80-5.20) 11/26/18 08:40 Hgb 13.2 g/dL (11.0-16.0) 11/26/18 08:40 Hct 38.5 % (34.0-47.0) 11/26/18 08:40 MCV 89.9 fL (81.0-99.0) 11/26/18 08:40 MCH 30.9 pg (27.0-31.0) 11/26/18 08:40 MCHC 34.3 g/dL (33.0-37.0) 11/26/18 08:40 RDW 14.3 % (11.5-14.5) 11/26/18 08:40 Plt Count 234 K/uL (130-400) 11/26/18 08:40 MPV 8.7 fL (7.2-11.7) 11/26/18 08:40 Neut % (Auto) 58.3 % (50.0-75.0) 11/26/18 08:40 Lymph % (Auto) 30.4 % (20.0-40.0) 11/26/18 08:40 [place]oard % (Auto) 7.2 % (0.0-10.0) 11/26/18 08:40 Eos % (Auto) 2.9 % (0.0-4.0) 11/26/18 08:40 Baso % (Auto) 1.2 % (0.0-2.0) 11/26/18 08:40 Neut # (Auto) 4.6 K/uL (1.8-7.0) 11/26/18 08:40 Lymph # (Auto) 2.4 K/uL (1.0-4.3) 11/26/18 08:40 Foard # (Auto) 0.6 K/uL (0.0-0.8) 11/26/18 08:40 Eos # (Auto) 0.2 K/uL (0.0-0.7) 11/26/18 08:40 Baso # (Auto) 0.1 K/uL (0.0-0.2) 11/26/18 08:40 Sodium 137 mmol/L (132-148) 11/26/18 08:40 Potassium 4.1 mmol/L (3.6-5.2) 11/26/18 08:40 Chloride 102 mmol/L (98-107) 11/26/18 08:40 Carbon Dioxide 23 mmol/L (22-30) 11/26/18 08:40 Anion Gap 17 (10-20) 11/26/18 08:40 BUN 13 mg/dL (7-17) 11/26/18 08:40 Creatinine 0.8 mg/dL (0.7-1.2) 11/26/18 08:40 Est GFR ( Amer) > 60 11/26/18 08:40 Est GFR (Non-Af Amer) > 60 11/26/18 08:40 Random Glucose 91 mg/dL (65-105) 11/26/18 08:40 Hemoglobin A1c 5.3 % (4.2-6.5) 11/26/18 08:40 Calcium 9.3 mg/dl (8.6-10.4) 11/26/18 08:40 Total Bilirubin 0.3 mg/dL (0.2-1.3) 11/26/18 08:40 AST 47 U/L (14-36) H 11/26/18 08:40 ALT 33 U/L (9-52) 11/26/18 08:40 Alkaline Phosphatase 86 U/L (38-126) 11/26/18 08:40 Total Protein 7.8 g/dL (6.3-8.3) 11/26/18 08:40 Albumin 4.3 g/dL (3.5-5.0) 11/26/18 08:40 Globulin 3.5 gm/dL (2.2-3.9) 11/26/18 08:40 Albumin/Globulin Ratio 1.2 (1.0-2.1) 11/26/18 08:40 Triglycerides 320 mg/dL (0-149) H 11/26/18 08:40 Cholesterol 307 mg/dL (0-199) H 11/26/18 08:40 LDL Cholesterol Direct 214 mg/dL (0-129) H 11/26/18 08:40 HDL Cholesterol 37 mg/dL (30-70) 11/26/18 08:40 Free T4 0.23 ng/dL (0.78-2.19) L 11/26/18 08:40 Thyroxine (T4) 2.19 ug/dL (5.5-11.0) L 11/26/18 08:40 Total T3 0.725 nmol/L (1.49-2.60) L 11/25/18 15:57 TSH 3rd Generation 84.20 mIU/L (0.46-4.68) H 11/26/18 08:40 Urine Color Yellow (YELLOW) 11/25/18 15:57 Urine Clarity Hazy (Clear) 11/25/18 15:57 Urine pH 5.0 (5.0-8.0) 11/25/18 15:57 Ur Specific [place] 1.016 (1.003-1.030) 11/25/18 15:57 Urine Protein Negative mg/dL (NEGATIVE) 11/25/18 15:57 Urine Glucose (UA) Normal mg/dL (Normal) 11/25/18 15:57 Urine Ketones Negative mg/dL (NEGATIVE) 11/25/18 15:57 Urine Blood 1+ (NEGATIVE) H 11/25/18 15:57 Urine Nitrate Negative (NEGATIVE) 11/25/18 15:57 Urine Bilirubin Negative (NEGATIVE) 11/25/18 15:57 Urine Urobilinogen Normal mg/dL (0.2-1.0) 11/25/18 15:57 Ur Leukocyte Esterase 3+ Flower/uL (Negative) H 11/25/18 15:57 Urine WBC (Auto) 31 /hpf (0-5) H 11/25/18 15:57 Urine RBC (Auto) 1 /hpf (0-3) 11/25/18 15:57 Ur Squamous Epith Cells 6 /hpf (0-5) H 11/25/18 15:57 Urine Bacteria Few (<OCC) H 11/25/18 15:57 - Hospital Course Hospital Course: H&P: 23 year old female with past medical history of hypothyroidism presents for fatigue and diffuse body aches ongoing for past 2 weeks. She also complains of 20 lb weight gain over last month. She states that in April, she was prescribed synthroid in [facility], [place] for 3 months. She completed the 3 month prescription and never followed up. She stopped the Synthroid about 1.5 months ago. In ED, pt noted to have TSH of 86.30 and T4 of 0.1. Pt complaining of profuse hair loss, fatigue, weakness, weight gain, shortness of breath. Denies having any changes in bowel movements, chest pain, depression, anxiety, vision changes, headaches. Hospital course: On admission, patient noted to have TSH of 86.30 and T4 0.10. EKG done on admission significant for sinus bradycardia. Patient was started on levothyroxine 100 mcg IV. Manager Telemarketing, Dr. Juarez was consulted. She recommended continuing patient on oral levothyroxine 100 mcg. On blood work, patient also noted to have hyperlipidemia. Diet modification and exercise recommended to patient to improve cholesterol. Patient was stable for discharge home. She was asked to follow up with clinic for further management. Discharge instructions: Patient stable for discharge home. Patient asked to follow up with [facility] in 1 week of discharge. Patient asked to return to hospital if symptoms return. Patient discharged with the following new medication: Levothyroxine 100 mcg daily #30 tabs. - Date & Time of H&P Date of H&P: 11/26/18 Time of H&P: 11:11 Discharge Exam - Head Exam Head Exam: ATRAUMATIC, NORMOCEPHALIC - ENT Exam ENT Exam: Mucous Membranes Moist - Respiratory Exam Respiratory Exam: Clear to PA & Lateral, NORMAL BREATHING PATTERN. absent: R ales, Rhonchi, Wheezes - Cardiovascular Exam Cardiovascular Exam: REGULAR RHYTHM, +S1, +S2. absent: Gallop, Rubs, Systolic Murmur - GI/Abdominal Exam GI & Abdominal Exam: Normal Bowel Sounds, Soft. absent: Distended, Firm, Guarding, Rigid, Tenderness - Extremities Exam Additional comments: no edema or tenderness - Neurological Exam Neurological exam: Alert, Oriented x3 - Psychiatric Exam Psychiatric exam: Normal Affect, Normal Mood - Skin Skin Exam: Dry, Intact, Normal Color, Warm Discharge Plan - Discharge Medications Prescriptions: Levothyroxine [Synthroid] 100 mcg PO DAILY #30 tab - Follow Up Plan Condition: FAIR Disposition: HOME/ ROUTINE Instructions: Hypothyroidism (Underactive Thyroid) (DC), Levothyroxine Additional Instructions: Patient stable for discharge home. Patient asked to follow up with [facility] in 1 week of discharge. Patient asked to return to hospital if symptoms return. Patient discharged with the following new medication: Levothyroxine 100 mcg daily #30 tabs. Referrals: Sangeetha Haskins MD [Staff Provider] -
--- NOTE | 2018-11-26 12:18 | PN ---
DATE: 11/26/2018 LOCATION: ICU room 569. SUBJECTIVE: This is a 23-year-old female with recent admission for overt hypothyroidism and associated constitutional metabolic symptoms thereof and is now being followed closely for metabolic management. She has received parenteral levothyroxine replacement therapy as given. Her latest chemistries showed a BUN of 17, sodium 136, potassium 3.8, chloride 101, CO2 of 25, glucose 85 and creatinine 0.7. It showed TSH was 6.3 with a free T4 of 0.10. The thyroid studies ordered for today are still pending at this time. ASSESSMENT: This is a 23-year-old female with overt hypothyroidism, noted both historically, clinically and biochemically related to drug omission as noted. She most likely has autoimmune thyroiditis. PLAN AND MANAGEMENT: Would recommend the switch over now from the parenteral or IV levothyroxine to oral levothyroxine given as 125 mcg p.o. daily as ordered. As she is hemodynamically stable, she can actually be discharged from this oral levothyroxine dose of 125 mcg daily. This medication is very affordable and costs only 10 dollars in the local pharmacy for 90 days' supply. Stephenie Juarez MD
[2018-11-26 16:00] VITALS: BP 112/67; PULSE 69; TEMP 98.5; O2SAT 98
--- NOTE | 2018-11-28 12:53 | CARD ---
APPROVED REPORT Date of service: 11/25/2018 EKG Measurement Heart [id number] <Conclusion> Sinus bradycardia with sinus arrhythmia Otherwise normal ECG
== END 2018-11-26 15:35 | disposition home or self-care (01) ==
LOC: C.ER 14:38 → C.5S 17:03
PROVIDERS: ADMIT Internal Medicine; ATTEND Internal Medicine
DX: E06.3 Autoimmune thyroiditis (principal); E78.5 Hyperlipidemia, unspecified; R00.1 Bradycardia, unspecified
CPT/HCPCS: 36415; 80053; 80061; 81001; 81025; 83036; 84436; 84439; 84443; 84480; 85025; 86376; 86800; 96374; 99284; G0378

== ENCOUNTER 2018-11-28 17:38 | Emergency (ER) | payer OTHER ==
[2018-11-28 17:46] VITALS: BMI 36.6
[2018-11-28] MEDS ORDERED: Sodium Chloride 0.9% 1,000 ML IV ONE ×3 (19:14→23:15)
--- NOTE | 2018-11-28 19:16 | C.PDOC ---
History Of Present Illness 23 y/o female presents to the ER complaining of neck pain, abdominal pain, and bilateral lower leg pain. Patient states that she has history of hyperthyroidism and she was admitted in [facility] within the past week. Denies having fever,chills, headache,dizziness, CP, SOB, nausea, and vomiting. Time Seen by Provider: 11/28/18 17:50 Chief Complaint (Nursing): Lower Extremity Problem/Injury History Per: Patient History/Exam Limitations: no limitations Onset/Duration Of Symptoms: Days Current Symptoms Are (Timing): Still Present Severity: Moderate Past Medical History Reviewed: Historical Data, Nursing Documentation, Vital Signs Vital Signs: Last Vital Signs Temp 98.7 F 11/28/18 17:47 Pulse 72 11/28/18 17:47 Resp 17 11/28/18 17:47 BP 119/84 11/28/18 17:47 Pulse Ox 99 11/28/18 17:47 Primary Care Provider: FAMILY PROVIDER,NO - Medical History PMH: Hypothyroidism Surgical History: No Surg Hx Family History: States: No Known Family Hx - Social History Hx Alcohol Use: No Hx Substance Use: No - Immunization History Hx Tetanus Toxoid Vaccination: No Hx Influenza Vaccination: No Hx Pneumococcal Vaccination: No Review Of Systems Except As Marked, All Systems Reviewed And Found Negative. Constitutional: Negative for: Fever, Chills Cardiovascular: Negative for: Chest Pain Respiratory: Negative for: Shortness of Breath Gastrointestinal: Negative for: Nausea, Vomiting Musculoskeletal: Positive for: Neck Pain, Leg Pain Physical Exam - Physical Exam Appears: Non-toxic, No Acute Distress Skin: Normal Color, Warm, Dry Head: Atraumatic, Normacephalic Eye(s): bilateral: Normal Inspection Nose: Normal Oral Mucosa: Moist Neck: Normal ROM, No Midline Cervical Tenderness, Supple Chest: Symmetrical Cardiovascular: Rhythm Regular Respiratory: Normal Breath Sounds, No Rales, No Rhonchi, No Wheezing Gastrointestinal/Abdominal: Normal Exam, Soft, No Tenderness, No Guarding, No Rebound Extremity: Normal ROM, Tenderness (mild tenderness to bilateral posterior lateral legs) Neurological/Psych: Oriented x3, Normal Speech, Normal Motor, Normal Sensation ED Course And Treatment - Laboratory Results Result Diagrams: 11/28/18 19:40 11/28/18 19:40 O2 Sat by Pulse Oximetry: 99 (RA) Pulse Ox Interpretation: Normal Medical Decision Making Medical Decision Making: Plan: --Labs --UA --HCG,Qual. --IV Fluids --Toradol IV Disposition Counseled Patient/Family Regarding: Diagnosis - Disposition Referrals: [facility] [Outside] Disposition: HOME/ ROUTINE Disposition Time: Condition: STABLE Additional Instructions: increased fluids by mouth Prescriptions: Naproxen 375 mg PO Q8 #20 tablet Instructions: Hypothyroidism (Underactive Thyroid) (DC), Muscle and Bone Pain (DC) Forms: Signpost (Singaporean) - POA Present On Arrival: None - Clinical Impression Clinical Impression: Hypothyroidism, Muscular pain - Scribe Statement The provider has reviewed the documentation as recorded by the Khoi Salas Provider Attestation: All medical record entries made by the Abbieibe were at my direction and personally dictated by me. I have reviewed the chart and agree that the record accurately reflects my personal performance of the history, physical exam, me dical decision making, and the department course for this patient. I have also personally directed, reviewed, and agree with the discharge instructions and disposition.
[2018-11-28 19:43] LABS: BASO # 0.1 K/uL (0.0-0.2); EOS # 0.3 K/uL (0.0-0.7); EOS % 3.1 % (0.0-4.0); HEMOGLOBIN 13.3 g/dL (11.0-16.0); LYMPH # 2.7 K/uL (1.0-4.3); MEAN CELL VOLUME 89.3 fL (81.0-99.0); MEAN CORPUSCULAR HEMOGLOBIN 30.2 pg (27.0-31.0); MEAN CORPUSCULAR HGB CONC 33.9 g/dL (33.0-37.0); MEAN PLATELET VOLUME 8.5 fL (7.2-11.7); MONO # 0.6 K/uL (0.0-0.8); MONO % 6.6 % (0.0-10.0); NEUT # 5.7 K/uL (1.8-7.0); NEUT % 60.3 % (50.0-75.0); RBC 4.41 Mil/uL (3.80-5.20); RED CELL DISTRIBUTION WIDTH 14.8 % (11.5-14.5); WHITE BLOOD COUNT 9.4 K/uL (4.8-10.8)
[2018-11-28 20:00] LABS: ALB/GLOB RATIO 1.1 (1.0-2.1); ALBUMIN 4.8 g/dL (3.5-5.0); ALT/SGPT 56 U/L (9-52); AST/SGOT 135 U/L (14-36); BLOOD UREA NITROGEN 11 mg/dL (7-17); CALCIUM 9.7 mg/dl (8.6-10.4); GFR NON-AFRICAN AMERICAN > 60
[2018-11-28 20:04] LABS: SQUAMOUS EPITHIAL 4 /hpf (0-5); URINE BACTERIA OCC (<OCC); URINE BILIRUBIN NEGATIVE (NEGATIVE); URINE BLOOD NEGATIVE (NEGATIVE); URINE CLARITY Hazy (Clear); URINE COLOR Yellow (YELLOW); URINE GLUCOSE (UA) NORMAL (Normal); URINE LEUKOCYTE ESTERASE 2+ Leu/uL (Negative); URINE PROTEIN NEGATIVE (NEGATIVE); URINE UROBILINOGEN NORMAL mg/dL (0.2-1.0)
[2018-11-28 20:05] LABS: HCG,QUALITATIVE URINE NEGATIVE (NEGATIVE)
[2018-11-29 01:03] VITALS: BP 93/62; PULSE 72; RESP 16; TEMP 98.4
[2018-11-29 01:33] VITALS: O2SAT 99
== END 2018-11-29 01:44 | disposition home or self-care (01) ==
LOC: C.ER 17:38
DX: E03.9 Hypothyroidism, unspecified (principal); M79.10 Myalgia, unspecified site
CPT/HCPCS: 36415; 80053; 81001; 82550; 83874; 84439; 84481; 84703; 85025; 96374; 99285; J1885; J7030